=== PATIENT | female | born 1970 | race Caucasian/White ===

== ENCOUNTER 2018-01-09 13:55 | Outpatient (CLI) | payer OTHER ==
--- NOTE | 2018-01-09 15:25 | RAD ---
RIGHT ANKLE 3 VIEWS: Date: 01/09/18 HISTORY: Injury 6 weeks ago. FINDINGS: Evidence of prior lateral ligamentous complex injury. No lateral talar shift. Small phleboliths anterior soft tissues distal tibia. Small plantar and dorsal calcaneal spurs. IMPRESSION: Evidence of chronic changes. POS: [facility]
--- NOTE | 2018-01-09 15:27 | RAD ---
3 VIEWS RIGHT FOOT: Date: 01/09/18 HISTORY: Right foot pain after injuring foot 6 weeks ago. FINDINGS: Lisfranc joint is normally aligned. No acute fracture or dislocation is seen involving the right foot . A tiny plantar calcaneal enthesophyte is identified. There is an osseous density seen just lateral to the calcaneus with lucency seen involving the lateral aspect anterior process of the calcaneus, li chilo related to remote avulsion injuries. No acute fracture or dislocation seen. IMPRESSION: Remote avulsion injuries involving the lateral aspect of the right calcaneus as described above. No a cute osseous abnormality is seen involving the right foot. POS: [facility]
== END 2018-01-09 13:56 | disposition home or self-care (01) ==
LOC: SCSRAD 13:55
PROVIDERS: ATTEND Family Medicine
DX: M79.671 Pain in right foot (principal)